=== PATIENT | female | born 1955 | race Caucasian/White ===

== ENCOUNTER → 2019-09-04 | Day surgery (SDC) | payer OTHER ==
[~2019-09-04] MED LIST: Lactated Ringers 1,000 ML IV SCH; Propofol 200 MG/20 ML SDV IV ONE
--- NOTE | 2019-09-04 13:46 | OR ---
DATE OF OPERATION: 09/04/2019 PREOPERATIVE DIAGNOSIS: SCREENING COLONOSCOPY. POSTOPERATIVE DIAGNOSIS: SCREENING COLONOSCOPY. SURGEON: Iftikhar Montejo MD PROCEDURE: FULL-LENGTH COLONOSCOPY. ANESTHESIA: MAC. COMPLICATIONS: None. SPECIMEN: None. FINDINGS: 1. Normal full-length colonoscopy. 2. Tortuous colon. RECOMMENDATIONS: Followup colonoscopy in 10 years. INDICATIONS: The patient was sent for a routine screening colonoscopy. It has been 10 years since her last exam. DESCRIPTION OF PROCEDURE: The patient was prepped and draped, placed in the left lateral decubitus position. A lubricated Olympus colonoscope was inserted and advanced to the cecum. We were able to directly visualize the ileocecal valve and appendiceal orifice. The patient is quite tortuous most notably in the transverse colon and bowel caliber is small which makes her a challenging exam. Bowel prep was excellent. Upon withdrawal of the scope, throughout the entire length of the colon, I could find no signs of any polyps, masses, ulcers, or bleeding sites. No vascular abnormalities or signs of colitis. No signs of any obvious diverticula. The rectal vault was benign. Retroflexion of the scope in the rectum showed no anal lesions. Air was suctioned, scope removed without complication. SATINDER/FLORINA /[id number]
== END ==
LOC: CC.SDS 07:18
PROVIDERS: ATTEND Nurse Practitioner Family
DX: Z12.11 Encounter for screening for malignant neoplasm of colon (principal); Q43.8 Other specified congenital malformations of intestine; I10 Essential (primary) hypertension; E11.9 Type 2 diabetes mellitus without complications; E78.5 Hyperlipidemia, unspecified; K21.9 Gastro-esophageal reflux disease without esophagitis; E04.1 Nontoxic single thyroid nodule; G43.909 Migraine, unspecified, not intractable, without status migrainosus; M19.011 Primary osteoarthritis, right shoulder; Z79.82 Long term (current) use of aspirin; Z79.84 Long term (current) use of oral hypoglycemic drugs; Z79.899 Other long term (current) drug therapy
CPT/HCPCS: G0121; J2704; J7120